=== PATIENT | male | born 1980 | race Caucasian/White ===

== ENCOUNTER 2020-12-29 06:00 | Emergency (ER) | payer OTHER, SELFPAY ==
--- NOTE | ~2020-12-29 | CT_ITS ---
EXAMINATION: CT abdomen pelvis w con DATE: 12/29/2020 07:42 INDICATION: Right lower quadrant and right groin pain. TECHNIQUE: Computed tomography (CT) of the abdomen and pelvis was performed with 100 cc Omnipaque 350 intravenous contrast. Automated exposure control and iterative reconstruction technique were employe d. Exam dose: 1059.76 mGy-cm total exam DLP. COMPARISON: None. FINDINGS: There is minimal dependent bilateral lower lobe atelectasis. Normal heart size. No pericardial or pleural effusion. The liver, gallbladder, bile ducts, spleen, pancreas and pancreatic duct are unremarkable. The spleen measures 12 cm, which is within upper limits of normal. Normal morphology of the adrenal glands. Very small probable cyst of the lower pole of the left kidney. The kidneys are otherwise unremarkable . No urinary tract calculus or hydroureteronephrosis. The urinary bladder is unremarkable. Normal caliber of the abdominal aorta. There are some shoddy nonenlarged mesenteric lymph nodes, particularly right lower quadrant which may represent mild mesenteric adenitis. There is a fat-containing right inguinal hernia. The prostate gland and seminal vesicles are unremarkable. Included skeletal structures are unremarkable; no suspicious osteolytic or osteoblastic lesions. Normal appendix. No bowel obstruction, bowel wall thickening, pneumatosis or intraperitoneal free air . IMPRESSION: Fat-containing right inguinal hernia Shotty nonenlarged mesenteric lymph nodes, especially in right lower quadrant, which may represent mi ld mesenteric adenitis Probable very small lower pole left renal cyst Reviewed, dictated and finalized at [facility] Reviewed, dictated and finalized at [facility] IMPRESSION: Fat-containing right inguinal hernia Shotty nonenlarged mesenteric lymph nodes, especially in right lower quadrant, which may represent mild mesenteric adenitis Probable very small lower pole left renal cyst
[2020-12-29 06:03] VITALS: BP 125/76; PULSE 55; RESP 17; TEMP 36.2; O2SAT 100
[2020-12-29 06:28] LABS: Add Urine Microscopic? NO; Appearance Urine Clear (Clear); Bilirubin Urine Negative (Negative); Blood Urine Negative (Negative); Color Urine Yellow (Yellow); Glucose Urine UA Negative (Negative); Ketones Urine Negative (Negative); Leukocyte Esterase Ur Negative LEU/UL (Negative); Nitrate Urine Negative (Negative); Protein Urine Negative (Negative); Specific Grav Ur 1.026 (1.001-1.035); Urobilinogen Urine Negative mg/dL (<2.0)
--- NOTE | 2020-12-29 06:44 | ED.ABDPAIN ---
HPI - Abdominal Pain General Chief Complaint: Urogenital-Male Stated Complaint: hernia Time Seen by Provider: 12/29/20 06:40 Source: patient Mode of arrival: ambulatory Limitations: no limitations History of Present Illness HPI narrative: Patient is a 40-year-old male complaining of right lower quadrant pain, right groin pain that started last week but worse for the past few days, 6 out of 10, dull pain, unable to have a bowel movement due to the pain. Patient denies any nausea, vomiting, diarrhea, fever, chills or urinary symptoms. Patient denies any testicular pain or swelling. Related Data Home Medications Medication Instructions Recorded Confirmed No Home Medications 12/29/20 12/29/20 Allergies Allergy/AdvReac Type Severity Reaction Status Date / Time Penicillins Allergy Mild Other Verified 12/29/20 06:07 Review of Systems Review of Systems: All systems reviewed & are unremarkable except as noted in HPI and below Constitutional: Constitutional: Denies body ache(s), Denies chills, Denies excessive sweating, Denies fatigue, Denies fever(s), Denies headache(s), Denies lethargy, Denies malaise, Denies weakness and Denies weight loss Eyes: Eyes: Denies blurry vision, Denies change in vision and Denies loss of vision ENT: Denies dizziness, Denies ear discharge, Denies headache(s), Denies lip swelling, Denies epistaxis, Denies nasal congestion, Denies neck pain, Denies throat swelling and Denies tongue swelling Cardiovascular: Cardiovascular: Denies chest pain, Denies chest pain at rest, Denies chest pain with activity, Denies diaphoresis, Denies rapid heart rate, Denies edema, Denies irregular heart rhythm, Denies lightheadedness, Denies palpitations, Denies dyspnea and Denies dyspnea on exertion Respiratory: Respiratory: Denies chest congestion, Denies cough, Denies hemoptysis, Denies dyspnea and Denies dyspnea on exertion Gastrointestinal: Gastrointestinal: Denies melena, Denies hematochezia, Denies diarrhea, Denies nausea, Denies vomiting and Denies hematemesis Musculoskeletal: Musculoskeletal: Denies abnormal gait, Denies deformity, Denies joint swelling, Denies limited range of motion, Denies neck pain and Denies numbness Neurologic: Denies Abnormal speech present, Denies abnormal gait, Denies confusion, Denies dizziness, Denies headache(s), Denies focal weakness, Denies loss of vision, Denies numbness, Denies Other visual disturbances, Denies Sensory deficit (Neuro) and Denies weakness Psychiatric: Psychiatric: Denies confusion, Denies depression, Denies auditory hallucinations, Denies homicidal ideation and Denies suicidal ideation Endocrine: Endocrine: Denies cold intolerance, Denies excessive sweating, Denies fatigue, Denies heat intolerance and Denies palpitations Hematologic/Lymphatic: Hematologic/Lymphatic: Denies easy bleeding and Denies easy bruising Allergic/Immunologic: Allergic/Immunologic: Denies lip swelling, Denies throat swelling and Denies tongue swelling PMF Social History Social History Gender identity (if verbalized by the patient): Male Exam Const: General: cooperative, healthy appearing, comfortable, no acute distress, well developed, alert and awake; No confusion Orientation/consciousness: oriented to person, oriented to place, oriented to time, patient oriented x3 and No confusion Limitations: no limitations HENMT: Head: normal to inspection, normocephalic and atraumatic Ears: hearing grossly normal bilaterally, TM normal on the right and TM normal on the left General nose exam: Normal external nose present, Normal nares present and No nasal discharge present Face and sinus: normal facial exam Mouth: Yes Normal oral and palatal mucosa present, Yes lip normal, Yes tongue normal and Yes oropharynx normal Throat: posterior oropharynx normal, tonsils normal and uvula midline Eyes: General: appearance normal, both eyes and all relate
--- NOTE | 2020-12-29 07:12 | PC.NURSE ---
Bedside report received from KAREN Ruano, to continue care. Preparing to initiate IV for CT. Pt updated on procedures.
[2020-12-29 07:17] LABS: Basophils Percent Auto 0.8 % (0.2-1.2); Eosinophils Absolute Auto 0.1 K/mm3 (0-0.3); Eosinophils Percent Auto 2.3 % (0-4.4); Hematocrit 41.7 % (42.0-52.0); Hemoglobin 14.5 g/dL (14.0-18.0); Immature Granulocyte Absolute 0.01 K/mm3 (0.00-0.031); Immature Granulocyte Percent A 0.3 % (0-0.5); Lymphocytes Absolute Auto 1.25 K/mm3 (0.9-3.2); Lymphocytes Percent Auto 32.3 % (18.3-44.2); Mean Corpuscular HGB Conc 34.8 g/dl (32-36); Mean Corpuscular Hemoglobin 30.8 pg (26-34); Mean Corpuscular Volume 88.5 fl (80-100); Mean Platelet Volume 9.5 fl (7.4-10.4); Monocytes Absolute Auto 0.4 K/mm3 (0.1-0.6); Monocytes Percent Auto 9.3 % (2.6-8.5); Neutrophils Absolute Auto 2.1 K/mm3 (1.3-6.7); Platelet Count Result 155 k/mm3 (150-375); Red Blood Count 4.71 M/mm3 (4.6-6.20); Red Cell Distribution Width 12.4 % (11.5-14.5); White Blood Count 3.9 K/mm3 (4.5-10.0)
[2020-12-29 07:27] LABS: Alanine Aminotransferase 27 U/L (4-50); Alkaline Phosphatase 40 U/L (38-126); Anion Gap 4 mmol/L (8-16); Aspartate Amino Transferase 24 U/L (17-59); Bilirubin,Total 0.6 mg/dL (0.2-1.3); Blood Urea Nitrogen 19 mg/dL (9-20); Calcium 8.7 mg/dL (8.4-10.2); Carbon Dioxide 29 mmol/L (22-30); Chloride 106 mmol/L (98-107); Estimated CRCL calculation 119 ml/min; Estimated Glomerular Filt Rate > 60; Glucose 110 mg/dL (75-110); Lipase 55 U/L (23-300); Potassium 4.1 mmol/L (3.4-5.0); Sodium 139 mmol/L (137-145)
== END 2020-12-29 08:36 | disposition home or self-care (01) ==
PROVIDERS: Emergency Medicine; Emergency Provider General Practice
DX: K40.90 Unilateral inguinal hernia, without obstruction or gangrene, not specified as recurrent (principal)
CPT/HCPCS: 36415; 74177; 80053; 81003; 83690; 85025; 99284; Q9967

== ENCOUNTER → 2021-01-14 02:38 | Outpatient (CLI) | payer OTHER, SELFPAY ==
[2021-01-14 21:58] LABS: SARS-CoV-2 RNA PCR Negative
== END ==
PROVIDERS: Visit Provider Surgery
DX: Z01.812 Encounter for preprocedural laboratory examination (principal); Z20.822 Contact with and (suspected) exposure to COVID-19
CPT/HCPCS: C9803; U0003; U0005

== ENCOUNTER 2021-01-14 08:05 | Outpatient (CLI) | payer OTHER, SELFPAY | END 2021-01-14 08:06 | disposition home or self-care (01) | PROVIDERS: Visit Provider Surgery | DX: K40.90 Unilateral inguinal hernia, without obstruction or gangrene, not specified as recurrent (principal); Z01.818 Encounter for other preprocedural examination | CPT/HCPCS: 36415; 86850; 86900; 86901 ==

== ENCOUNTER 2021-01-17 00:49 | Day surgery (SDC) | payer OTHER, SELFPAY ==
[2021-01-10 09:36] VITALS: BMI 28.0
[2021-01-17] VITALS (11 sets, daily range): BP systolic 118–147; BP diastolic 61–88; PULSE 50–76; RESP 14–16; TEMP 36.2; O2SAT 98–100
[2021-01-17] MEDS: LACTATED RINGERS 1,000 ML 30 ML IV CONT (11:45)
[2021-01-17] MEDS: ACETAMINOPHEN 500 MG TABLET 1000 MG PO (11:47)
[2021-01-17] MEDS: KETOROLAC 15 MG/ML VIAL (*BKC) IV PUSH (11:48)
--- NOTE | 2021-01-17 12:41 | WPDANESEPPF ---
Anes - Initial Pre Proc Eval Procedure: Operation Date: 01/17/21 13:30 Proposed Procedures p Laparoscopic Totally Extra Peritoneal Right Inguinal Hernia Repair With Mesh - Saturnino Ruiz MD Date/Time: 01/17/21 12:41 Surgeon: Saturnino Ruiz MD Pre Op Diagnosis: Right Inguinal Hernia Patient Data Age: 40 Gender: M Height: 6 ft 4 in Weight: 104.4 kg Allergies Allergy/AdvReac Type Severity Reaction Status Date / Time Penicillins Allergy Unknown FROM Verified 01/17/21 12:03 CHILDHOOD Home Medications Medication Instructions Recorded Confirmed Type No Home Medications 01/10/21 01/17/21 History Patient hx anesthesia problems: none Family hx anesthesia problems: none PMFSH Past Medical History Medical History No pertinent past medical history Surgical History Surgical History History of right knee surgery Family History Family History Grandparent Diabetes mellitus Lymphoma Social History Social History Smoking status: Never smoker Alcohol intake: current Living arrangements: with family Additional occupation/education comments: [employer] Gender identity (if verbalized by the patient): Male Spiritual care concerns: No Anes - Eval Final PreProcedure Day of Procedure 01/17/21 12:41 Patient weight: overweight Heart: regular rate and rhythm Lungs: clear to auscultation Airway: Mallampati scale class II Neurological: alert and oriented Last oral intake: >/= 8 hours ASA classification: II Emergent: no Anesthetic plan: proceed Anesthesia type and monitoring: general ETT and standard monitoring Informed Consent: The patient's anesthetic plan and its attendant risks and benefits were discussed with the patient/family/POA. Questions were solicited and answers provided to the satisfaction of the patient/family/POA.
--- NOTE | 2021-01-17 13:24 | WPDHPUPDATE1 ---
History and Physical Update Update Date/Time: 01/17/21 13:24 History and Physical has been reviewed, including an updated exam of the patient. There are NO changes in the patient's condition. Risks, benefits, and alternatives have been discussed and questions answered. Patient agrees to proceed with procedure.
[2021-01-17] MEDS: CLINDAMYCIN 900 MG/D5W 50 ML 900 MG/50 ML PIGGYBACK 50 MG IVPB (13:31)
[2021-01-17] MEDS: BUPIVACAINE/EPINEPHRINE 0.5% 10 ML VIAL 30 ML INFILTRATE (14:18)
--- NOTE | 2021-01-17 15:38 | PM.PROC ---
Procedure Note - Detailed Date of procedure: 01/17/21 Pre-op diagnosis: Right Inguinal Hernia Post-op diagnosis: other (Indirect right inguinal hernia with lipoma of the cord) Procedure performed: Laparoscopic totally extraperitoneal right inguinal hernia repair with mesh Description of procedure: After appropriate marking of the operative site prior to surgery, the patient was taken to the operating room. After induction of adequate general endotracheal anesthesia by [facility] staff, the patient was carefully prepped and draped in a sterile fashion. A timeout was performed confirming the procedure and site of surgery on the RIGHT. Following this, local anesthetic was infiltrated into the umbilical area and a vertical incision was made just below the umbilicus. I carefully dissected down to the the anterior rectus sheath on the right and then made a 1 cm vertical slit in the fascia just off the midline. The rectus muscle was retracted to right and then just in front of the posterior rectus sheath, a dissecting balloon was passed onto the pubic bone. After placing slight pressure on the left groin area, this was insufflated with 40 pumps, while watching with the 0 degree laparoscope. It appeared that I was in the proper plane. Following this, the dissecting balloon was removed and replaced by a Hanson cannula that has a 30 cc circular balloon on it to be used as a conforming balloon. Following this, the 0 degree laparoscope was used to carefully place two 5mm [employer] trocars, just to the left of midline. One suprapubic and other one long term between the umbilicus and the pubic bone. Tedious dissection then occurred in the preperitoneal space exposing the Mario's ligament, the cord structures, the muscular tissue anteriorly, and the retroperitoneum. The indirect hernia sac and a lipoma of the cord was then able to be dissected back and we could visualize the posterior peritoneum. I then dissected up to the level of the umbilicus and it was ready for mesh placement. After carefully confirming all sites and that the mesh would cover the direct, indirect, and femoral space, I carefully rolled the large RT. Bard 3D Max mesh and slid this through the 12 mm trocar at the umbilical level down into the preperitoneal space. This unfurled nicely and sat nicely against the right groin structures. It nicely covered all spaces and it went back nicely into the preperitoneal space along the anterior-superior iliac spine. I took a picture of it carefully, which showed that the mesh will cover the preperitoneal groin well, and had come down to the posterior border of the peritoneum. Once this was accomplished, I took the patient out of Trendelenburg position, rotated the patient back even, and then observed using a dissector through the higher 5 mm trocar to keep the mesh pushed down against the anterior and posterior abdominal wall retroperitoneally. The peritoneum was then allowed to fall on to the mesh and it held the mesh nicely in place. I carefully removed each of the 5 mm trocars under direct vision and compressed the CO2 gas out of the preperitoneal space, deflating the conforming balloon and removing it. I was happy with the way the peritoneum and indirect hernia sac laid back on the mesh. I felt this will give the patient a good preperitoneal repair. Following this, I carefully placed an O Vicryl figure of eight suture to close the anterior rectus sheath on the right side of the umbilical incision and then local anesthetic was infiltrated into each of the incisions. Each site was closed with 4-0 undyed Monocryl and a running subcuticular closure of 4-0 undyed Monocryl was used on the skin of umbilicus. Surgical glue was used for dressing. Following this, the patient was taken to the recovery room in good condition. Estimated blood loss, again, was about less than 30 mls. Home going instructions were given for taking it easy for one week and to follow up in th
[2021-01-17] MEDS: oxyCODONE HCL (*CRX) 5 MG TAB IR PO (16:49)
== END 2021-01-17 17:47 | disposition home or self-care (01) ==
PROVIDERS: Visit Provider Surgery
PROC: (CPT 49650; principal; 2021-01-17 13:30)
DX: K40.90 Unilateral inguinal hernia, without obstruction or gangrene, not specified as recurrent (principal); D17.6 Benign lipomatous neoplasm of spermatic cord
CPT/HCPCS: 49650; 36415; 86850; 86900; 86901; A9270; C1727; C1781; C9803; J0330; J1100; J1885; J2250; J2405; J2704; J3010; J7030; J7120; U0003; U0005